=== PATIENT | male | born 1965 | race Caucasian/White ===

== ENCOUNTER 2018-10-06 15:16 | Emergency (ER) | payer OTHER, SELFPAY ==
--- NOTE | 2018-10-06 16:49 | RAD REPORT ---
EXAM DESCRIPTION: RAD - Elbow Left 3 View - 10/06/2018 4:43 pm CLINICAL HISTORY: SWELLING Pain and swelling COMPARISON: No comparisons FINDINGS: Large amount of swelling is seen along the olecranon and medial aspect of the elbow, likel y bursitis. No fracture or foreign body.
[2018-10-06] MEDS ORDERED: MUPIROCIN 2% OINT 22GM TUBE TOP ONE (17:22)
--- NOTE | 2018-10-06 17:53 | EDPHYS ---
Physician Documentation [facility] Name: Aime Cagle Age: 52 yrs Sex: Male : 1965 Arrival Date: 10/06/2018 Time: 15:19 Bed 27 Private MD: Balwinder Caraballo T ED Physician Ward Ramirez HPI: 10/06 16:15 This 52 yrs old Male presents to ER via Ambulatory with complaints of cp Swelling Of Elbow. Historical: - Allergies: 15:47 No Known Allergies; ch - Home Meds: 15:47 Xarelto oral oral [Active]; losartan oral oral [Active]; atorvastatin oral oral ch [Active]; Bystolic oral oral [Active]; - PMHx: 15:47 Atrial Fib; Arthritis; Hypertension; ch - PSHx: 15:47 None; ch - Immunization history:: Adult Immunizations up to date. - Social history:: Smoking status: Patient uses tobacco products, smokes two packs cigarettes per day. - Ebola Screening: : Patient negative for fever greater than or equal to 101.5 degrees Fahrenheit, and additional compatible Ebola Virus Disease symptoms Patient denies exposure to infectious person Patient denies travel to an Ebola-affected area in the 21 days before illness onset No symptoms or risks identified at this time. ROS: 16:18 MS/extremity: Positive for erythema, swelling, tenderness, of the left elbow, Negative cp for decreased range of motion, paresthesias. 16:18 Constitutional: Negative for body aches, chills, fever, malaise. cp 16:18 Cardiovascular: Negative for chest pain, palpitations. 16:18 Respiratory: Negative for cough, shortness of breath, wheezing. 16:18 Abdomen/GI: Negative for abdominal pain, nausea, vomiting, and diarrhea. 16:18 Neuro: Negative for altered mental status, headache, weakness. 16:18 All other systems are negative. Exam: 16:25 Constitutional: The patient appears in no acute distress, alert, awake, non-toxic, well cp developed, well nourished. 16:25 Head/Face: Normocephalic, atraumatic. cp 16:25 Musculoskeletal/extremity: Extremities: grossly normal except: noted in the posterior cp aspect left elbow: swelling, There is no evidence of decreased ROM, Perfusion: the extremity is normally perfused throughout, Sensation intact. 16:25 Skin: overlying skin posterior left elbow appears with mild erythema and noted superficial wound. Vital Signs: 15:47 BP 112 / 72; Pulse 64; Resp 16; Temp 98.6; Pulse Ox 96% on R/A; Weight 80.74 kg; Height ch 6 ft. (182.88 cm); Pain 0/10; 17:14 BP 130 / 81; Pulse 55; Resp 18; Pulse Ox 95% on R/A; Pain 0/10; em 15:47 Body Mass Index 24.14 (80.74 kg, 182.88 cm) MDM: 15:51 Patient medically screened. cp 16:53 Data reviewed: vital signs, nurses notes, radiologic studies, plain films. cp 16:53 Differential diagnosis: closed fracture, septic joint, bursitis, cellulitis, abscess. cp Test interpretation: by ED physician or midlevel provider: xrays of left elbow show soft tissue swelling w/o fracture. Counseling: I had a detailed discussion with the patient and/or guardian regarding: the historical points, exam findings, and any diagnostic results supporting the discharge/admit diagnosis, radiology results, the need for outpatient follow up, a orthopedic surgeon, to return to the emergency department if symptoms worsen or persist or if there are any questions or concerns that arise at home. 10/06 16:10 Order name: XRAY Elbow LEFT 3 view; Complete Time: 16:52 10/06 16:52 Interpretation: Report reviewed. 10/06 16:53 Order name: Charlie wrap-joint: not tight; Complete Time: 17:03 cp Administered Medications: 17:10 Drug: Bactroban Ointment 2 % 1 application {Note: applied to left elbow.} Route: em Topical; Site: wound; 17:13 Follow up: Response: Medication administered at discharge. em Disposition: 17:20 Chart complete. cp Disposition: 10/06/18 16:54 Discharged to Home. Impression: Other bursitis of elbow, left elbow. - Condition is Stable. - Discharge Instructions: Bursitis. - Prescriptions for Doxycycline Hyclate 100 mg Oral Tablet - take 1 tablet by ORAL route every 12 hours; 20 tablet. Bactrim DS 800- 160 mg Oral Tablet - take 1 tablet by ORAL route every 12 hours for 10 days; 20 tablet. - Medication Reconciliation Form, Thank You Letter, Antibiotic Education, Prescription Opioid Use form. - Follow up: Mack Miranda MD; When: 2 - 3 days; Reason: Recheck today's complaints. - Problem is new. - Symptoms have improved. Addendum: 10/10/2018 09:17 Co-signature as Attending Physician, Ward Ramirez MD I agree with the assessment and c diaz plan of care. Signatures: Dispatcher [employer] Karen Lux, Ward Linder RN, ch, MD MD cha Munoz, Edgar, WATER CHEMIST WATER CHEMIST em Ward Higgins, JUDSON PA cp Corrections: (The following items were deleted from the chart) 10/06 17:15 16:54 10/06/2018 16:54 Discharged to Home. Impression: Other bursitis of elbow, left em elbow. Condition is Stable. Forms are Medication Reconciliation Form, Thank You Letter, Antibiotic Education, Prescription Opioid Use. Follow up: Mack Miranda; When: 2 - 3 days; Reason: Recheck today's complaints. Problem is new. Symptoms have improved. cp
--- NOTE | 2018-10-06 17:53 | ER ---
Nurse's Notes [facility] Name: Aime Cagle Age: 52 yrs Sex: Male : 1965 Arrival Date: 10/06/2018 Time: 15:19 Bed 27 Private MD: Balwinder Caraballo T Diagnosis: Other bursitis of elbow, left elbow Presentation: 10/06 15:48 Presenting complaint: Patient states: L elbow swelling for two weeks, now driaining stuff. Transition of care: patient was not received from another setting of care. Onset of symptoms was September 24, 2018. Risk Assessment: Do you want to hurt yourself or someone else? Patient reports no desire to harm self or others. Initial Sepsis Screen: Does the patient meet any 2 criteria? No. Patient's initial sepsis screen is negative. Does the patient have a suspected source of infection? No. Patient's initial sepsis screen is negative. Care prior to arrival: None. 15:48 Method Of Arrival: Ambulatory 15:48 Acuity: DAYDAY 4 Triage Assessment: 15:47 General: Behavior is. Historical: - Allergies: 15:47 No Known Allergies; ch - Home Meds: 15:47 Xarelto oral oral [Active]; losartan oral oral [Active]; atorvastatin oral oral ch [Active]; Bystolic oral oral [Active]; - PMHx: 15:47 Atrial Fib; Arthritis; Hypertension; ch - PSHx: 15:47 None; ch - Immunization history:: Adult Immunizations up to date. - Social history:: Smoking status: Patient uses tobacco products, smokes two packs cigarettes per day. - Ebola Screening: : Patient negative for fever greater than or equal to 101.5 degrees Fahrenheit, and additional compatible Ebola Virus Disease symptoms Patient denies exposure to infectious person Patient denies travel to an Ebola-affected area in the 21 days before illness onset No symptoms or risks identified at this time. Screenin:20 Abuse screen: Denies threats or abuse. Nutritional screening: No deficits noted. em Tuberculosis screening: No symptoms or risk factors identified. Fall Risk None identified. Assessment: 16:20 General: Appears in no apparent distress. comfortable, Behavior is calm, cooperative, em Denies fever. Pain: Denies pain. Neuro: Level of Consciousness is awake, alert, obeys commands, Oriented to person, place, time, situation. Cardiovascular: Capillary refill < 3 seconds Patient's skin is warm and dry. Respiratory: Airway is patent Respiratory effort is even, unlabored. Derm: Wound noted left elbow Wound is scab that has been there x 2 weeks. Musculoskeletal: Capillary refill < 3 seconds, Range of motion: intact in all extremities, Swelling present in left elbow. 16:20 Reassessment: I agree with assessment completed by Shimon Resendiz LVN . aa5 17:14 Reassessment: Patient appears in no apparent distress at this time. Patient and/or em family updated on plan of care and expected duration. Pain level reassessed. Patient is alert, oriented x 3, equal unlabored respirations, skin warm/dry/pink. Vital Signs: 15:47 BP 112 / 72; Pulse 64; Resp 16; Temp 98.6; Pulse Ox 96% on R/A; Weight 80.74 kg; Height ch 6 ft. (182.88 cm); Pain 0/10; 17:14 BP 130 / 81; Pulse 55; Resp 18; Pulse Ox 95% on R/A; Pain 0/10; em 15:47 Body Mass Index 24.14 (80.74 kg, 182.88 cm) ED Course: 15:19 Patient arrived in ED. rg4 15:20 Balwinder Caraballo MD is Private Physician. rg4 15:47 Arm band placed on left wrist. Patient placed in an exam room, on a stretcher. ch 15:48 Triage completed. ch 15:50 Ward Higgins PA is PHCP. cp 15:50 Ward Ramirez MD is Attending Physician. cp 16:20 Patient has correct armband on for positive identification. Bed in low position. Call em light in reach. 16:22 Shimon Resendiz LVN is Primary Nurse. em 16:45 XRAY Elbow LEFT 3 view In Process Unspecified. EDMS 16:53 Mack Miranda MD is Referral Physician. cp 17:12 Charlie wrap to left elbow. em 17:13 No provider procedures requiring assistance completed. Patient did not have IV access em during this emergency room visit. Administered Medications: 17:10 Drug: Bactroban Ointment 2 % 1 application {Note: applied to left elbow.} Route: em Topical; Site: wound; 17:13 Follow up: Response: Medication administered at discharge. em Outcome: 16:54 Discharge ordered by . cp 17:13 Discharged to home ambulatory. em 17:13 Condition: good 17:13 Discharge instructions given to patient, Instructed on discharge instructions, follow up and referral plans. medication usage, Demonstrated understanding of instructions, follow-up care, medications, wound care, Prescriptions given X 2. 17:15 Patient left the ED. em Signatures: Dispatcher [employer] EDKaren Acuna, RN RN Shimon Resendiz, ANALYTICAL STRATEGIST ANALYTICAL STRATEGIST em Izzy Crawley, RN RN aa5 Ward Higgnis PA PA Sari Dover rg4
== END 2018-10-06 17:15 | disposition home or self-care (01) ==
LOC: ER 15:16
DX: M71.522 Other bursitis, not elsewhere classified, left elbow (principal); I48.91 Unspecified atrial fibrillation; I10 Essential (primary) hypertension; F17.210 Nicotine dependence, cigarettes, uncomplicated; Z79.01 Long term (current) use of anticoagulants
CPT/HCPCS: 99284